=== PATIENT | male | born 1990 | race Caucasian/White ===

== ENCOUNTER 2018-06-19 21:08 | Emergency (ER) | payer BC ==
[2018-06-19] MEDS ORDERED: ONDANSETRON 4 MG/2 ML VIAL IVP STA ×2 (21:16→23:03)
[2018-06-19] MEDS ORDERED: SODIUM CHLORIDE 0.9% 1,000 ML IV STA ×2 (21:16→23:03)
[2018-06-19] MEDS ORDERED: MORPHINE SULFATE 4 MG/ML SYRINGE IV STA (21:22)
[2018-06-19 22:00] LABS: Basophils % (A) 0 %; Eosinophils # (A) 0.1 k/uL (0-0.7); Eosinophils % (A) 1 %; HCT 49.5 % (39.0-53.0); Lymphocytes # (A) 0.5 k/uL (1.0-4.8); Lymphocytes % (A) 5 %; MCH 28.8 pg (25.0-35.0); MCHC 34.4 g/dL (31.0-37.0); MCV 83.8 fL (80.0-100.0); Mean Platelet Volume 7.5; Monocytes # (A) 0.4 k/uL (0-1.0); Monocytes % (A) 4 %; Neutrophils # (A) 9.1 k/uL (1.3-7.7); Neutrophils % (A) 89 %; Platelet Count 161 k/uL (150-450); RBC 5.91 m/uL (4.30-5.90); RDW 12.9 % (11.5-15.5); WBC 10.2 k/uL (3.8-10.6)
--- NOTE | 2018-06-19 22:02 | XR ---
EXAMINATION TYPE: XR KUB DATE OF EXAM: 06/19/2018 COMPARISON: NONE HISTORY: Right upper quadrant pain TECHNIQUE: 2 views upright FINDINGS: There is no sign of intestinal obstruction or pneumoperitoneum. Fecal pattern is normal. Th ere are clips from cholecystectomy. Lung bases are clear. There are no pathologic calcifications over the kidneys. IMPRESSION: Nonacute abdomen.
--- NOTE | 2018-06-19 22:05 | ED ---
General Adult HPI - General Chief complaint: Abdominal Pain Stated complaint: Abd Pain Time Seen by Provider: 06/19/18 21:16 Source: patient, RN notes reviewed, old records reviewed Mode of arrival: ambulatory Limitations: no limitations - History of Present Illness Initial comments: 27-year-old male patient past medical history of appendectomy, cholecystectomy, no chronic medical conditions presents to ED with 1 day of nausea and vomiting, mild right upper quadrant pain. Patient does have a sick contact who yesterday developed nausea vomiting and abdominal pain. Pt has not taken anything for this problem. Patient denies other complaints. Patient denies chest pain, shortness of breath, dysuria, ear/chills. Systemic: Pt denies fatigue, myalgia, fever/chills, rash. Pt denies weakness, night sweats, weight loss. Neuro: Pt denies headache, visual disturbances, syncope or pre-syncope. HEENT: Pt denies ocular discharge or irritation, otalgia, rhinorrhea, pharyngitis or notable lymphadenopathy. Cardiopulmonary: Pt denies chest pain, SOB, heart palpitations, dyspnea on exertion. : Pt denies dysuria, burning w/ urination, frequency/urgency. Denies new onset urinary or bowel incontinence. MSK: Pt denies myalgia, loss of strength or function in extremities. Neuro: Pt denies new onset weakness, paresthesias. - Related Data Home Medications Medication Instructions Recorded Confirmed Albuterol Nebulized (Conc) 2.5 mg INHALATION RT-Q8H PRN 06/19/18 06/19/18 [Ventolin Nebulized (Conc)] Albuterol Sulfate [Proair Hfa] 2 puff INHALATION RT-Q8H PRN 06/19/18 06/19/18 EPINEPHrine (Auto Inject) [Epipen] 0.3 mg IM DIRECTED 06/19/18 06/19/18 Previous Rx's Medication Instructions Recorded Ondansetron Odt [Zofran ODT] 4 mg PO Q8HR PRN #20 tab 06/19/18 Allergies Allergy/AdvReac Type Severity Reaction Status Date / Time loracarbef [From Lorabid] Allergy Rash/Hives Verified 06/19/18 21:31 Sulfa (Sulfonamide Allergy Rash/Hives Verified 06/19/18 21:31 Antibiotics) Review of Systems ROS Statement: Those systems with pertinent positive or pertinent negative responses have been documented in the HPI. ROS Other: All systems not noted in ROS Statement are negative. Past Medical History Past Medical History: Asthma Additional Past Medical History / Comment(s): IBS, pericarditis History of Any Multi-Drug Resistant Organisms: None Reported Past Surgical History: Adenoidectomy, Appendectomy, Cholecystectomy, Tonsillectomy Additional Past Surgical History / Comment(s): eustachian tubes, PRK. Past Psychological History: No Psychological Hx Reported Smoking Status: Never smoker Past Alcohol Use History: Occasional Past Drug Use History: None Reported General Exam - General Exam Comments Initial Comments: Constitutional: NAD, AOX3, Pt has pleasant affect. HEENT: NC/AT, trachea midline, neck supple, no lymphadenopathy. Posterior pharynx non erythematous, without exudates. External ears appear normal, without discharge. Mucous membranes moist. Eyes PERRLA, EOM intact. There is no scleral icterus. No pallor noted. Cardiopulmonary: RRR, no murmurs, rubs or gallops, no JVD noted. Lungs CTAB in anterior and posterior brooks. No peripheral edema. Abdominal exam: Abdomen soft and non-distended. Abdomen non-tender to palpation in all 4 quadrants. The sign negative. Bowel sounds active in LLQ. No hepatosplenomegaly. No guarding or rigidity, No ecchymosis. Neuro: CN II-XII grossly intact. No nuchal rigidity. MSK: No posterior calf tenderness bilaterally, homans sign negative bilaterally. Posterior tibialis and radial pulse +2 bilaterally. Sensation intact in upper and lower extremities. Full active ROM in upper and lower extremities, 5/5 stregnth. Limitations: no limitations Course Vital Signs 06/19/18 06/19/18 06/19/18 21:09 22:56 23:19 Temperature 98.6 F 97.6 F Pulse Rate 109 H 106 H 108 H Respiratory 16 18 18 Rate Blood Pressure 135/76 164/86 130/80 O2 Sat by Pulse 98 100 100 Oximetry Medical Decision Making - Medical Decision Making 27-year-old male patient past medical history of appendectomy, cholecystectomy, no chronic medical conditions presents to ED with 1 day of nausea and vomiting, mild right upper quadrant pain. Pt has not taken anything for this problem. Patient denies other complaints. Patient denies chest pain, shortness of breath , dysuria, ear/chills. Physical exam did not display any acute pathology. Abdomen nontender to palpation. Investigations reveal non-impressive CBC, CMP. Amylase lipase within normal limits. UA negative. KUB displayed non acute abdomen. Repeat physical exam also displayed no acute abdomen. Patient tolerating oral ntake. Patient pain and nausea resulting ED. Patient Will discharge and monitoring his symptoms. Patient will follow-up PCP tomorrow. Patient will return to ED if condition worsens anyway. Case discussed in depth with Dr. Cruz. - Lab Data Result diagrams: 06/19/18 21:39 06/19/18 21:39 Lab Results 06/19/18 06/19/18 06/19/18 Range/Units 21:39 21:39 21:39 WBC 10.2 (3.8-10.6) k/uL RBC 5.91 H (4.30-5.90) m/uL Hgb 17.0 (13.0-17.5) gm/dL Hct 49.5 (39.0-53.0) % MCV 83.8 (80.0-100.0) fL MCH 28.8 (25.0-35.0) pg MCHC 34.4 (31.0-37.0) g/dL RDW 12.9 (11.5-15.5) % Plt Count 161 (150-450) k/uL Neutrophils % 89 % Lymphocytes % 5 % Monocytes % 4 % Eosinophils % 1 % Basophils % 0 % Neutrophils # 9.1 H (1.3-7.7) k/uL Lymphocytes # 0.5 L (1.0-4.8) k/uL Monocytes # 0.4 (0-1.0) k/uL Eosinophils # 0.1 (0-0.7) k/uL Basophils # 0.0 (0-0.2) k/uL Sodium 140 (137-145) mmol/L Potassium 3.9 (3.5-5.1) mmol/L Chloride 105 (98-107) mmol/L Carbon Dioxide 23 (22-30) mmol/L Anion Gap 12 mmol/L BUN 13 (9-20) mg/dL Creatinine 0.86 (0.66-1.25) mg/dL Est GFR (CKD-EPI)AfAm >90 (>60 ml/min/1.73 sqM) Est GFR (CKD-EPI)NonAf >90 (>60 ml/min/1.73 sqM) Glucose 102 H (74-99) mg/dL Plasma Lactic Acid Joss 1.0 (0.7-2.0) mmol/L Calcium 9.2 (8.4-10.2) mg/dL Total Bilirubin 1.8 H (0.2-1.3) mg/dL AST 34 (17-59) U/L ALT 59 (21-72) U/L Alkaline Phosphatase 85 (38-126) U/L Total Protein 7.5 (6.3-8.2) g/dL Albumin 4.6 (3.5-5.0) g/dL Amylase 61 (30-110) U/L Lipase 64 (23-300) U/L Urine Color Urine Appearance (Clear) Urine pH (5.0-8.0) Ur Specific [place] (1.001-1.035) Urine Protein (Negative) Urine Glucose (UA) (Negative) Urine Ketones (Negative) Urine Blood (Negative) Urine Nitrite (Negative) Urine Bilirubin (Negative) Urine Urobilinogen (<2.0) mg/dL Ur Leukocyte Esterase (Negative) 06/19/18 Range/Units 22:29 WBC (3.8-10.6) k/uL RBC (4.30-5.90) m/uL Hgb (13.0-17.5) gm/dL Hct (39.0-53.0) % MCV (80.0-100.0) fL MCH (25.0-35.0) pg MCHC (31.0-37.0) g/dL RDW (11.5-15.5) % Plt Count (150-450) k/uL Neutrophils % % Lymphocytes % % Monocytes % % Eosinophils % % Basophils % % Neutrophils # (1.3-7.7) k/uL Lymphocytes # (1.0-4.8) k/uL Monocytes # (0-1.0) k/uL Eosinophils # (0-0.7) k/uL Basophils # (0-0.2) k/uL Sodium (137-145) mmol/L Potassium (3.5-5.1) mmol/L Chloride (98-107) mmol/L Carbon Dioxide (22-30) mmol/L Anion Gap mmol/L BUN (9-20) mg/dL Creatinine (0.66-1.25) mg/dL Est GFR (CKD-EPI)AfAm (>60 ml/min/1.73 sqM) Est GFR (CKD-EPI)NonAf (>60 ml/min/1.73 sqM) Glucose (74-99) mg/dL Plasma Lactic Acid Joss (0.7-2.0) mmol/L Calcium (8.4-10.2) mg/dL Total Bilirubin (0.2-1.3) mg/dL AST (17-59) U/L ALT (21-72) U/L Alkaline Phosphatase (38-126) U/L Total Protein (6.3-8.2) g/dL Albumin (3.5-5.0) g/dL Amylase (30-110) U/L Lipase (23-300) U/L Urine Color Yellow Urine Appearance Clear (Clear) Urine pH 6.0 (5.0-8.0) Ur Specific [place] 1.023 (1.001-1.035) Urine Protein Trace H (Negative) Urine Glucose (UA) Negative (Negative) Urine Ketones 2+ H (Negative) Urine Blood Negative (Negative) Urine Nitrite Negative (Negative) Urine Bilirubin Negative (Negative) Urine Urobilinogen <2.0 (<2.0) mg/dL Ur Leukocyte Esterase Negative (Negative) Disposition Clinical Impression: Nausea & vomiting Disposition: HOME SELF-CARE Condition: Stable Instructions (If sedation given, give patient instructions): Acute Nausea and Vomiting (ED) Additional Instructions: Patient to adhere to previously discussed treatment plan and will take medication(s) as directed. Patient to follow up with PCP in 1-2 days. Patient to return to ED if symptoms do not improve. Please monitor symptoms. Please return to ED if new signs or symptoms worsen in anyway. Please use zofran as needed for nausea. Prescriptions: Ondansetron Odt [Zofran ODT] 4 mg PO Q8HR PRN #20 tab PRN Reason: Nausea Is patient prescribed a controlled substance at d/c from ED?: No Referrals: Philipp Blue MD [Primary Care Provider] - 1-2 days Time of Disposition: 22:55
[2018-06-19 22:10] LABS: ALT 59 U/L (21-72); AST 34 U/L (17-59); Albumin 4.6 g/dL (3.5-5.0); Alkaline Phosphatase 85 U/L (38-126); Amylase 61 U/L (30-110); Anion Gap 12 mmol/L; Blood Urea Nitrogen 13 mg/dL (9-20); Calcium 9.2 mg/dL (8.4-10.2); Carbon Dioxide 23 mmol/L (22-30); Chloride 105 mmol/L (98-107); Glucose 102 mg/dL (74-99); Lipase 64 U/L (23-300); Potassium 3.9 mmol/L (3.5-5.1); Sodium 140 mmol/L (137-145); Total Bilirubin 1.8 mg/dL (0.2-1.3); Total Protein 7.5 g/dL (6.3-8.2)
[2018-06-19 22:38] LABS: Appearance,Urine Clear (Clear); Bilirubin,Urine Negative (Negative); Blood,Urine Negative (Negative); Color,Urine Yellow; Glucose,Urine (UA) Negative (Negative); Ketones,Urine 2+ (Negative); Leukocyte Esterase,Urine Negative (Negative); Nitrite,Urine Negative (Negative); Protein,Urine Trace (Negative); Specific Gravity,Urine 1.023 (1.001-1.035); Urobilinogen,Urine <2.0 mg/dL (<2.0)
[2018-06-19 22:57] VITALS: RESP 18; TEMP 97.6
[2018-06-19] MEDS ORDERED: LORazepam 2 MG/ML INJ IV STA (23:24)
[2018-06-20 00:06] VITALS: BP 138/86; PULSE 105
== END 2018-06-20 00:06 | disposition home or self-care (01) ==
LOC: EC 21:08
DX: R11.2 Nausea with vomiting, unspecified (principal); R10.11 Right upper quadrant pain; J45.909 Unspecified asthma, uncomplicated; Z87.19 Personal history of other diseases of the digestive system; Z90.49 Acquired absence of other specified parts of digestive tract; Z79.899 Other long term (current) drug therapy; Z88.2 Allergy status to sulfonamides; Z88.1 Allergy status to other antibiotic agents
CPT/HCPCS: 36415; 80053; 82150; 83605; 83690; 85025; 81003; 74018; 99284; 96374; 96375; 96376; 96361 ×2; J2270; J2405

== ENCOUNTER 2018-09-18 09:34 | Emergency (ER) | payer BC ==
--- NOTE | 2018-09-18 10:51 | ED ---
General Adult HPI - General Chief complaint: ENT Stated complaint: blood in sputum Time Seen by Provider: 09/18/18 10:29 Source: patient Mode of arrival: ambulatory Limitations: no limitations - History of Present Illness Initial comments: Patient is a 28-year-old male complaining of throat pain 5 days. He states when he clears his throat of one, there is a "blood ting" to it. States he called his PCP on Friday but was unable to get an, also PCP prescribed a Z-Fox. He has been taking the Z-Fox without improvement. He has also been taking Tylenol which does not help with the pain. He describes this throat pain as left sided starting out as sharp and burning and pain with yawning. He admits now the throat pain is improved but still there and he is worried about the blood-tinged sputum. Admits a family history of thyroid disease. He is a nonsmoker and occasional drinker. Patient denies coughing, shortness of breath, congestion, fever, chills, chest pain, burning in the chest, nausea vomiting. - Related Data Home Medications Medication Instructions Recorded Confirmed Albuterol Nebulized (Conc) 2.5 mg INHALATION RT-Q8H PRN 06/19/18 09/18/18 [Ventolin Nebulized (Conc)] Albuterol Sulfate [Proair Hfa] 2 puff INHALATION RT-Q8H PRN 06/19/18 09/18/18 EPINEPHrine (Auto Inject) [Epipen] 0.3 mg IM DIRECTED 06/19/18 09/18/18 Previous Rx's Medication Instructions Recorded Ondansetron Odt [Zofran ODT] 4 mg PO Q8HR PRN #20 tab 06/19/18 Sucralfate [Carafate] 1 gm PO BID 14 Days #28 tablet 09/18/18 Allergies Allergy/AdvReac Type Severity Reaction Status Date / Time loracarbef [From Lorabid] Allergy Rash/Hives Verified 09/18/18 10:33 Sulfa (Sulfonamide Allergy Rash/Hives Verified 09/18/18 10:33 Antibiotics) Review of Systems ROS Statement: Those systems with pertinent positive or pertinent negative responses have been documented in the HPI. ROS Other: All systems not noted in ROS Statement are negative. Past Medical History Past Medical History: Asthma Additional Past Medical History / Comment(s): IBS, pericarditis History of Any Multi-Drug Resistant Organisms: None Reported Past Surgical History: Adenoidectomy, Appendectomy, Cholecystectomy, Tonsillectomy Additional Past Surgical History / Comment(s): eustachian tubes, PRK. Past Psychological History: No Psychological Hx Reported Smoking Status: Never smoker Past Alcohol Use History: Occasional Past Drug Use History: None Reported General Exam - General Exam Comments Initial Comments: GENERAL: Well-appearing, well-nourished and in no acute distress. HEAD: Atraumatic, normocephalic. EYES: Pupils equal round and reactive to light, extraocular movements intact, sclera anicteric, conjunctiva are normal. ENT: TMs normal, nares patent, oropharynx clear without exudates. Moist mucous membranes. No erythema or exudate. NECK: Normal range of motion, supple without lymphadenopathy or JVD. Very mild tenderness on the left. LUNGS: Breath sounds clear to auscultation bilaterally and equal. No wheezes rales or rhonchi. HEART: Regular rate and rhythm without murmurs, rubs or gallops. ABDOMEN: Soft, nontender, normoactive bowel sounds. No guarding, no rebound. No masses appreciated. : Deferred EXTREMITIES: Normal range of motion, no pitting or edema. No clubbing or cyanosis. NEUROLOGICAL: Cranial nerves II through XII grossly intact. Normal speech, normal gait. PSYCH: Normal mood, normal affect. SKIN: Warm, Dry, normal turgor, no rashes or lesions noted. Limitations: no limitations Course Vital Signs 09/18/18 09/18/18 10:20 11:23 Temperature 98.4 F 98.6 F Pulse Rate 80 77 Respiratory 16 18 Rate Blood Pressure 133/85 134/92 O2 Sat by Pulse 99 95 Oximetry Medical Decision Making - Medical Decision Making Patient is a 28-year-old male complaining of left-sided throat pain 5 days. States pain started as sharp and pain with yawning. Today he describes it as sore. He admits to occasional blood-tinged phlegm. He was started on Z-Fox by his PCP which did not help. He denies any other viral symptoms. Soft tissue neck x-ray was normal. Patient declined CT at this time. He was discharged home with ENT follow-up and a trial of Carafate. Case discussed with Dr. Elam. Disposition Clinical Impression: Throat pain Disposition: HOME SELF-CARE Condition: Stable Instructions (If sedation given, give patient instructions): Esophagitis (ED) Additional Instructions: Please return to the Emergency Department if symptoms worsen or any other concerns. Prescriptions: Sucralfate [Carafate] 1 gm PO BID 14 Days #28 tablet Is patient prescribed a controlled substance at d/c from ED?: No Referrals: Philipp Blue MD [Primary Care Provider] - 1-2 days Velasquez Heller MD [STAFF PHYSICIAN] - 1-2 days
[2018-09-18 11:24] VITALS: RESP 18
--- NOTE | 2018-09-18 11:27 | XR ---
EXAMINATION TYPE: XR soft tissue neck DATE OF EXAM: 09/18/2018 COMPARISON: NONE HISTORY: Pain for order. Nodule in the airway or dysphasia per patient. TECHNIQUE: 2 views of soft tissue neck are acquired. FINDINGS: Region of epiglottis and vallecula is both within normal limits on lateral view. No suspici ous prevertebral soft tissue swelling. Calcification of thyroid cartilage makes evaluation of this le santiago slightly suboptimal. Airway is patent on frontal view without suspicious subglottic narrowing. Vi sualized upper lungs are clear. IMPRESSION: As above. Fairly unremarkable study.
[2018-09-18 12:35] VITALS: BP 135/87; PULSE 80; TEMP 98.2
== END 2018-09-18 12:35 | disposition home or self-care (01) ==
LOC: EC 09:34
DX: R07.0 Pain in throat (principal); J45.909 Unspecified asthma, uncomplicated; Z79.899 Other long term (current) drug therapy; Z88.2 Allergy status to sulfonamides; Z88.1 Allergy status to other antibiotic agents
CPT/HCPCS: 70360; 99283

== ENCOUNTER 2022-04-06 17:44 | Emergency (ER) | payer OTHER, BC ==
[2022-04-06 17:51] VITALS: BP 141/96; PULSE 95; RESP 16; TEMP 97.2
[2022-04-06 18:41] LABS: Basophils % (A) 0 %; Eosinophils # (A) 0.1 k/uL (0-0.7); Eosinophils % (A) 1 %; HCT 46.2 % (39.0-53.0); HGB 16.7 gm/dL (13.0-17.5); Lymphocytes # (A) 2.9 k/uL (1.0-4.8); Lymphocytes % (A) 31 %; MCH 29.7 pg (25.0-35.0); MCHC 36.1 g/dL (31.0-37.0); MCV 82.2 fL (80.0-100.0); Mean Platelet Volume 8.5; Monocytes # (A) 0.5 k/uL (0-1.0); Monocytes % (A) 5 %; Neutrophils # (A) 5.8 k/uL (1.3-7.7); Neutrophils % (A) 61 %; Platelet Count 181 k/uL (150-450); RBC 5.62 m/uL (4.30-5.90); RDW 12.4 % (11.5-15.5); WBC 9.5 k/uL (3.8-10.6)
[2022-04-06 18:46] LABS: ALT 57 U/L (4-49); AST 34 U/L (17-59); African American GFR (CKD) >90 (>60 ml/min/1.73 sqM); Albumin 4.8 g/dL (3.5-5.0); Alkaline Phosphatase 83 U/L (38-126); Anion Gap 9 mmol/L; Blood Urea Nitrogen 10 mg/dL (9-20); Calcium 8.9 mg/dL (8.4-10.2); Carbon Dioxide 24 mmol/L (22-30); Chloride 104 mmol/L (98-107); Glucose 90 mg/dL (74-99); Non-African American GFR(CKD) >90 (>60 ml/min/1.73 sqM); Potassium 3.5 mmol/L (3.5-5.1); Sodium 137 mmol/L (137-145); Total Bilirubin 0.9 mg/dL (0.2-1.3); Total Protein 7.7 g/dL (6.3-8.2)
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
[2022-04-06] MEDS: EMTRICITABINE/TENOFOVIR (TDF) 1 EACH, DOLUTEGRAVIR SODIUM 50 MG PO STA ×4 (19:21→19:22)
[2022-04-07 10:03] LABS: Hepatitis B Surface AB- Quant 3.5 mIU/mL; Hepatitis B Surface Antibody Nonreactive (Nonreactive); Hepatitis C IgG Antibody Nonreactive (Nonreactive)
[2022-04-08 14:17] LABS: HIV 2 AB Non-Reactive (Non-Reactive); HIV AB P24 Non-Reactive (Non-Reactive); HIV P24 AG Non-Reactive (Non-Reactive)
== END 2022-04-06 19:24 | disposition home or self-care (01) ==
LOC: EC 17:44
DX: S61.230A Puncture wound without foreign body of right index finger without damage to nail, initial encounter (principal); J45.909 Unspecified asthma, uncomplicated; Z88.1 Allergy status to other antibiotic agents; Z88.2 Allergy status to sulfonamides; Z79.899 Other long term (current) drug therapy; W46.1XXA Contact with contaminated hypodermic needle, initial encounter
CPT/HCPCS: 36415; 80053; 85025; 86706; 86803; 87390; 99282; 99284

== ENCOUNTER 2022-04-11 14:22 | Emergency (ER) | payer OTHER, BC ==
[2022-04-11 14:51] VITALS: RESP 18; TEMP 98
--- NOTE | 2022-04-11 15:49 | ED ---
Recheck HPI - General Chief Complaint: Recheck/Abnormal Lab/Rx Stated Complaint: [facility]-needs lab draw Time Seen by Provider: 04/11/22 15:35 Source: patient, RN notes reviewed Mode of arrival: ambulatory Limitations: no limitations - History of Present Illness Initial Comments: This is a 31-year-old male who presents to the emergency department for a needle stick exposure. Patient works for [employer], and 5 days ago, he was stuck in the finger with a needle in the ambulance. He did go to [facility] the day of the incident and had all of the necessary blood work obtained. He was told that he did not have any hepatitis B antibodies after the vaccinations. They subsequently gave him the first vaccination in the series and instructed him to come to the emerge ncy department for the hepatitis B immunoglobulin. Denies any fevers, chills, sore throat, cough, dyspnea, chest pain, palpitations, abdominal pain, nausea, vomiting, diarrhea, back pain, or headaches. MD Complaint: other (needs hepatitis B immunoglobulin) - Related Data Home Medications Medication Instructions Recorded Confirmed Albuterol Nebulized (Conc) 2.5 mg INHALATION RT-Q8H PRN 06/19/18 09/18/18 [Ventolin Nebulized (Conc)] Albuterol Sulfate [Proair Hfa] 2 puff INHALATION RT-Q8H PRN 06/19/18 09/18/18 EPINEPHrine (Auto Inject) [Epipen] 0.3 mg IM DIRECTED 06/19/18 09/18/18 Previous Rx's Medication Instructions Recorded Ondansetron Odt [Zofran ODT] 4 mg PO Q8HR PRN #20 tab 06/19/18 Sucralfate [Carafate] 1 gm PO BID 14 Days #28 tablet 09/18/18 Emtricitabine/Tenofovir (Tdf) 1 tab PO DAILY #28 tab 04/06/22 [Truvada 200 mg-300 mg Tablet] Raltegravir Potassium [Isentress] 400 mg PO Q12H #56 tab 04/06/22 Allergies Allergy/AdvReac Type Severity Reaction Status Date / Time loracarbef [From Lorabid] Allergy Rash/Hives Verified 04/11/22 14:51 Sulfa (Sulfonamide Allergy Rash/Hives Verified 04/11/22 14:51 Antibiotics) Review of Systems ROS Statement: Those systems with pertinent positive or pertinent negative responses have been documented in the HPI. ROS Other: All systems not noted in ROS Statement are negative. Past Medical History Past Medical History: Asthma Additional Past Medical History / Comment(s): IBS, pericarditis History of Any Multi-Drug Resistant Organisms: None Reported Past Surgical History: Adenoidectomy, Appendectomy, Cholecystectomy, Tonsillectomy Additional Past Surgical History / Comment(s): eustachian tubes, PRK. Past Psychological History: No Psychological Hx Reported Smoking Status: Never smoker Past Alcohol Use History: Occasional Past Drug Use History: None Reported General Exam Limitations: no limitations General appearance: alert, in no apparent distress Head exam: Present: atraumatic, normocephalic, normal inspection Respiratory exam: Present: normal lung sounds bilaterally. Absent: respiratory distress, wheezes, rales, rhonchi, stridor Cardiovascular Exam: Present: regular rate, normal rhythm, normal heart sounds. Absent: systolic murmur, diastolic murmur, rubs, gallop, clicks Neurological exam: Present: alert, oriented X3, CN II-XII intact Psychiatric exam: Present: normal affect, normal mood Skin exam: Present: warm, dry, intact, normal color. Absent: rash Course Vital Signs 04/11/22 04/11/22 14:48 16:27 Temperature 98.0 F Pulse Rate 89 82 Respiratory 18 18 Rate Blood Pressure 139/93 138/85 O2 Sat by Pulse 96 96 Oximetry Medical Decision Making - Medical Decision Making This is a 31-year-old male who presents to the emergency department for a needle stick injury. Hepatitis B immunoglobnulin administered. All required blood work obtained through [facility]. He otherwise has no concerns or complaints he would like addressed. Return precautions reviewed in depth, the patient is instructed to return to the emergency department with any new, worsening, or concerning symptoms. Patient verbalized understanding. This case was discussed in detail with the attending ED physician. Presentation, findings, and treatment plan discussed in detail as well. Was pt. sent in by a medical professional or institution? @ -[facility] Did you speak to anyone other than the patient for history? @ -None Did you review nursing and triage notes? @ -Agree, applicable to the patient's visit. Were old charts reviewed? @ -None Differential Diagnosis? @ -Not necessarily applicable in this case, he was just sent over for a medication. He had no concerns or complaints that otherwise needed to be addressed. Diagnosis/symptom? @ -needle stick injury Acute, or Chronic, or Acute on Chronic? @ -acute Uncomplicated (without systemic symptoms) or Complicated (systemic symptoms)? @ -uncomplicated Side effects of treatment? @ -possible reaction to hepatitis B immunoglobulin from the medication or injection site. Exacerbation, Progression, or Severe Exacerbation] @ -Neither Poses a threat to life or bodily function? @ -There is a threat if he were to not receive the immunoglobulin and was subsequently diagnosed with hepatitis B from the needle stick injury. Disposition Clinical Impression: Needle stick injury Disposition: HOME SELF-CARE Instructions (If sedation given, give patient instructions): Needle Stick Injuries (ED) Additional Instructions: Return to the emergency department with any new, worsening, or concerning symptoms. Follow up with your primary care provider in 1-2 days. Is patient prescribed a controlled substance at d/c from ED?: No Referrals: Philipp Blue MD [Primary Care Provider] - 1-2 days
[2022-04-11] MEDS ORDERED: HEPATITIS B IMMUNE GLOBULIN 5 ML VIAL IM ONE (15:58)
[2022-04-11 16:28] VITALS: BP 138/85; PULSE 82
== END 2022-04-11 16:28 | disposition home or self-care (01) ==
LOC: EC 14:22
DX: Z02.83 Encounter for blood-alcohol and blood-drug test (principal); J45.909 Unspecified asthma, uncomplicated; Z79.899 Other long term (current) drug therapy; Z88.2 Allergy status to sulfonamides
CPT/HCPCS: 90371; 96372; 99282